=== PATIENT | female | born 2005 | race Two or more races ===

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

== ENCOUNTER 2025-01-19 21:47 | Emergency (ER) | payer OTHER ==
[~2025-01-19] VITALS: Ht 154.9 cm; Wt 70.6 kg
[2025-01-19 22:32] VITALS: BP 107/76; PULSE 95; RESP 16; TEMP 98.3; O2SAT 100
[2025-01-19 22:34] LABS: Basophils # (auto) 0.1 10 ^3/uL (0-0.2); Hemoglobin 13.7 g/dL (12.2-16.2); Monocytes # (auto) 0.9 10 ^3/uL (0-1.3)
[2025-01-19 22:35] LABS: Basophils % (auto) 0.6 % (0.0-2.0); Eosinophils # (auto) 0.1 10 ^3/uL (0-0.8); Eosinophils % (auto) 0.4 % (0.0-7.0); Lymphocytes # (auto) 2.3 10 ^3/uL (0.4-5.4); Lymphocytes % (auto) 12.8 % (10.0-50.0); Mean Corpuscular Hemoglobin 26.6 pg (28.0-32.0); Mean Corpuscular Hgb Conc. 33.6 g/dL (32.0-36.0); Mean Corpuscular Volume 79.3 fL (80.0-100.0); Neutrophils # (auto) 14.7 10 ^3/uL (1.6-8.6); Neutrophils % (auto) 81.2 % (37.0-80.0); Platelet Count (auto) 332 10^3/uL (140-450); Red Blood Cells 5.17 10^6/uL (4.0-5.20); Red Cell Distribution Width 14.4 % (11.8-14.3); White Blood Cell 18.1 10^3/uL (4.4-10.8)
[2025-01-19 22:51] LABS: Alanine Aminotransferase 25 U/L (7-40); Anion Gap 8 (5-15); Aspartate Aminotransferase 19 U/L (13-40); BUN/Creatinine Ratio 17.3 (10.0-20.0); Blood Urea Nitrogen 14 mg/dL (9-23); Calcium 10.3 mg/dL (8.7-10.4); Carbon Dioxide 26 mmol/L (20-31); Chloride 106 mmol/L (98-107); Glucose 103 mg/dL (74-106); Magnesium 2.2 mg/dL (1.6-2.6); Potassium 4.3 mmol/L (3.5-5.1); Sodium 140 mmol/L (136-145); Total Protein 7.8 g/dL (5.7-8.2)
[2025-01-19 22:54] LABS: Alkaline Phosphatase 118 U/L (46-116); Bilirubin, Total 0.2 mg/dL (0.2-1.0)
[2025-01-19] MEDS ORDERED: levETIRAcetam 500 MG TAB PO ONE (23:00)
--- NOTE | 2025-01-19 23:13 | ED.PDOC ---
HPI (NEURO) HPI Comments 19 year old female presents to the ED with a chief complaint of seizures onset today (01/19/25). Patient experienced a seizure episode, witnessed by father. Father states patient was in the car, experienced a seizure, lasted about 4 minutes. Patient has a PMHx seizures, is currently on Keppra, is compliant with medication, last seizure was about 2 years ago. Shortly after seizure, patient experienced an episode of nausea/vomiting. She is currently experiencing generalized weakness, eye pain, headache. Denies chest pain, shortness of breath, dizziness, diarrhea, abdominal pain, fever, chills, cough, congestion. no other symptoms or modifying factors present at this time. Chief Complaint: Seizure Time Seen by MD: 22:35 Primary Care Provider: UNKNOWN Reviewed Notes: Medications, Allergies Information Source: Patient, Relative (Father) Mode of Arrival: Wheelchair Severity: Moderate Headache Severity: Moderate Timing: Hours Duration: Since onset Prehospital treatment: None Seizure Quality: Tonic-clonic Headache Quality: Sharp Headache Location: Generalized Weakness Location: Generalized Onset: At rest Circumstances: Spontaneous Symptoms: Weakness Before: Normal After: Headache History of: Seizure Disorder Modifying factors: Nothing Associated Signs and Symptoms: Headache, Weakness Past Medical History PAST MEDICAL HISTORY: Seizures Surgical History: Denies all surgeries IRRIGATION SPECIALIST History: No Pertinent IRRIGATION SPECIALIST History Family History Family History: Family hx of Cancer Family History (Other): Mother has ovarian cancer Social History Smoker: Non-Smoker Alcohol: Denies ETOH Use Drugs: Denies Drug Use Lives In: Home Constitutional: reports: weakness; denies: chills, diaphoresis, fatigue, fever, malaise, sweats, others EENTM: reports: eye pain; denies: blurred vision, double vision, ear bleeding, ear discharge, ear drainage, ear pain, ear ringing, eye redness, hearing loss, mouth pain, mouth swelling, nasal discharge, nose bleeding, nose congestion, nose pain, photophobia, tearing, throat pain, throat swelling, voice changes, others Respiratory: denies: cough, hemoptysis, orthopnea, SOB at rest, shortness of breath, SOB with excertion, stridor, wheezing, others Cardiovascular: denies: chest pain, dizzy spells, diaphoresis, Dyspnea on exertion, edema, irregular heart beat, left arm pain, lightheadedness, palpitations, PND, syncope, others Gastrointestinal: reports: nausea, vomiting; denies: abdomen distended, abdominal pain, blood streaked bowels, constipated, diarrhea, dysphagia, difficulty swallowing, hematemesis, melena, poor appetite, poor fluid intake, rectal bleeding, rectal pain, others Genitourinary: denies: abnormal vagina bleeding, burning, dyspareunia, dysuria, flank pain, frequency, hematuria, incontinence, pain, , vagina discharge, urgency, others Neurological: reports: headache, seizure; denies: dizziness, fainting, left sided numbness, left sided weakness, numbness, paresthesia, pre-existing deficit, right sided numbness, right sided weakness, speech problems, tingling, tremors, weakness, others Musculoskeletal: denies: back pain, gout, joint pain, joint swelling, muscle pain, muscle stiffness, neck pain, others Integumetry: denies: bruises, change in color, change in hair/nails, dryness, laceration, lesions, lumps, rash, wounds, others Allergic/Immunocompromised: denies: Difficulty Healing, Frequent Infections, Hives, Itching, others Hematologic/Lymphatic: denies: anemia, blood clots, easy bleeding, easy bruising, swollen glands, others Endocrine: denies: excessive hunger, excessive sweating, excessive thirst, excessive urination, flushing, intolerance to cold, intolerance to heat, unexplained weight gain, unexplained weight loss, others Psychiatric: denies: anxiety, bipolar disorder, depression, hopeless, panic disorder, schizophrenia, sleepless, suicidal, others All Other Systems: Reviewed and Negative Physical Exam General Appearance: No Apparent Distress, Normal HEENT: Normal ENT Inspection, Pharynx Normal, TMs Normal Neck: Full Range of Motion, Non-Tender, Normal, Normal Inspection Respiratory: Chest Non-Tender, Lungs Clear, No Accessory Muscle Use, No Respiratory Distress, Normal Breath Sounds Cardiovascular: No Edema, No JVD, No Murmur, No Gallop, Normal Peripheral Pulses, Regular Rate/Rhythm Breast Exam: Deferred Gastrointestinal: No Organomegaly, Non Tender, No Pulsatile Mass, Normal Bowel Sounds, Soft Genitalia: Deferred Pelvic: Deferred Rectal: Deferred Extremities: No calf tenderness, Normal capillary refill, Normal inspection, Normal range of motion, Non-tender, No pedal edema Musculoskeletal : Apperance: Normal Neurologic: Alert, local sales associate II-XII nml as Tested, No Motor Deficits, Normal Affect, Normal Mood, No Sensory Deficits Cerebellar Function: Normal Reflexes: Normal Skin: Dry, Normal Color, Warm Lymphatic: No Adenopathy Was a procedure done? Was a procedure done?: No Differential Diagnosis (SZ) Seizure: Psychogenic Seizure, Alcohol Withdrawl, Anticonvulsant Withdrawl, Clos ed Head Injury, Hyponatremia, Syncope, Encephalopathy, Epilepsy-Break Through, Epilepsy-Status, Other X-Ray, Labs, Meds, VS Vital Signs Date Time Temp Pulse Resp B/P (MAP) Pulse Ox O2 Delivery O2 Flow Rate FiO2 01/19/25 22:32 98.3 95 16 107/76 (86) 100 98.3 Lab Test 01/19/25 22:23 Range/Units White Blood Count 18.1 H 4.4-10.8 10^3/uL Red Blood Count 5.17 4.0-5.20 10^6/uL Hemoglobin 13.7 12.2-16.2 g/dL Hematocrit 41.0 36.0-46.0 % Mean Corpuscular Volume 79.3 L 80.0-100.0 fL Mean Corpuscular Hemoglobin 26.6 L 28.0-32.0 pg Mean Corpuscular Hemoglobin Concent 33.6 32.0-36.0 g/dL Red Cell Distribution Width 14.4 H 11.8-14.3 % Platelet Count 332 140-450 10^3/uL Mean Platelet Volume 7.9 6.9-10.8 fL Neutrophils (%) (Auto) 81.2 H 37.0-80.0 % Lymphocytes (%) (Auto) 12.8 10.0-50.0 % Monocytes (%) (Auto) 5.0 0.0-12.0 % Eosinophils (%) (Auto) 0.4 0.0-7.0 % Basophils (%) (Auto) 0.6 0.0-2.0 % Neutrophils # (Auto) 14.7 H 1.6-8.6 10 ^3/uL Lymphocytes # (Auto) 2.3 0.4-5.4 10 ^3/uL Monocytes # (Auto) 0.9 0-1.3 10 ^3/uL Eosinophils # (Auto) 0.1 0-0.8 10 ^3/uL Basophils # (Auto) 0.1 0-0.2 10 ^3/uL Nucleated Red Blood Cells 0.0 % Sodium Level 140 136-145 mmol/L Potassium Level 4.3 3.5-5.1 mmol/L Chloride Level 106 98-107 mmol/L Carbon Dioxide Level 26 20-31 mmol/L Anion Gap 8 5-15 Blood Urea Nitrogen 14 9-23 mg/dL Creatinine 0.81 0.550-1.02 mg/dL Glomerular Filtration Rate Calc 107 >90 mL/min BUN/Creatinine Ratio 17.3 10.0-20.0 Serum Glucose 103 74-106 mg/dL Calcium Level 10.3 8.7-10.4 mg/dL Magnesium Level 2.2 1.6-2.6 mg/dL Total Bilirubin 0.2 0.2-1.0 mg/dL Aspartate Amino Transferase (AST) 19 13-40 U/L Alanine Aminotransferase (ALT) 25 7-40 U/L Alkaline Phosphatase 118 H 46-116 U/L Total Protein 7.8 5.7-8.2 g/dL Albumin 5.0 H 3.2-4.8 g/dL Time of 1ST Reevaluation: 23:05 Reevaluation 1ST: Unchanged Patient Education/Counseling: Diagnosis, Treatment, Prognosis Family Education/Counseling: Diagnosis, Treatment, Prognosis Departure 1 Departure Time of Disposition: 01:00 Impression: Primary Impression: Seizure Disposition: 01 HOME / SELF CARE / HOMELESS Condition: Stable e-Prescriptions Cefdinir (Cefdinir) 300 Mg Cap 1 CAP PO BID for 7 Days, #14 CAP Prov: CHARISSA PADILLA MD 01/20/25 Levetiracetam (Keppra) 1,000 Mg Tab 1 TAB PO BID for 90 Days, #180 TAB 5 Refills Prov: CHARISSA PADILLA MD 01/20/25 Discharged With: Self Critical Care Note Critical Care Time?: No Stability Stability form required: No I personally scribed for CHARISSA PADILLA MD ([email or web address]) on 01/19/25 at 23:13. Electronically submitted by Amaya Alvarez ([email or web address]). CHARISSA PADILLA MD Jan 19, 2025 23:13
[2025-01-20] MEDS ORDERED: LEVE100012 PO (00:24)
[2025-01-20] MEDS ORDERED: CEFD300C2 PO (00:26)
[2025-01-20] MEDS ORDERED: SULFAMETHOX W/TRIMETH(800/160MG) DS TAB PO ONE (00:30)
== END 2025-01-20 02:06 | disposition home or self-care (01) ==
LOC: ER 21:47
DX: R56.9 Unspecified convulsions (principal); R51.9 Headache, unspecified
CPT/HCPCS: 36415; 80053; 83735; 85025